=== PATIENT | male | born 1930 | race Two or more races ===

== ENCOUNTER 2016-05-06 15:13 | Inpatient (IN) | payer OTHER ==
[~2016-05-06] VITALS: Ht 167.6 cm; Wt 75.7 kg
[2016-05-06 17:49] LABS: Basophils # (auto) 0 uL; Basophils % (auto) 0.3 % (0.0-2.0); Eosinophils # (auto) 0.2 uL; Eosinophils % (auto) 1.6 % (0.0-7.0); Hematocrit 34.2 % (41.0-53.0); Hemoglobin 11.4 g/dL (13.5-17.5); Lymphocytes # (auto) 0.8 uL; Lymphocytes % (auto) 8.4 % (10.0-50.0); Mean Corpuscular Hgb Conc. 33.2 g/dL (32.0-36.0); Mean Corpuscular Volume 93.5 fL (80.0-100.0); Mean Platelet Volume 7.8 fL (7.4-10.4); Monocytes # (auto) 0.5 uL; Monocytes % (auto) 5.2 % (0.0-12.0); Neutrophils # (auto) 8.2 uL; Neutrophils % (auto) 84.5 % (37.0-80.0); Platelet Count (auto) 258 10^3/uL (140-450); Red Cell Distribution Width 13.9 % (11.6-16.0); White Blood Cell 9.7 10^3/uL (4.4-10.8)
[2016-05-06 18:02] LABS: Albumin 4.1 g/dL (3.4-5.0); Anion Gap 10 (5-15); Aspartate Aminotransferase 15 U/L (15-37); BUN/Creatinine Ratio 20.2; Blood Urea Nitrogen 52 mg/dL (7-18); Calcium 9.4 mg/dL (8.5-10.1); Carbon Dioxide 31 mmol/L (21-32); Chloride 97 mmol/L (98-107); GFR African American 31 mL/min; GFR Non-African American 25 mL/min; Glucose 101 mg/dL (74-106); Potassium 4.9 mmol/L (3.5-5.1); Sodium 138 mmol/L (136-145)
[2016-05-06 18:07] LABS: Alkaline Phosphatase 80 U/L (45-117); Bilirubin, Total 0.5 mg/dL (0.2-1.0); Total Protein 8.1 g/dL (6.4-8.2)
[2016-05-06 20:52] LABS: INR 1.01 (0.9-1.15); Partial Thromboplastin Time 28.2 sec (22.64-33.71); Prothrombin Time 10.9 sec (9.37-12.3)
[2016-05-06 20:54] LABS: B-Type Natriuretic Peptide 65.81 pg/mL (0-100)
[2016-05-06 21:03] LABS: Temperature: 23.1 C (20.0-25.0)
[2016-05-06 23:13] LABS: Urine Bilirubin Negative (Negative); Urine Blood Negative /uL (Negative); Urine Color Yellow (Yellow); Urine Glucose Normal (Normal); Urine Hyaline Cast MOD /lpf (0 - 2); Urine Ketone Negative (Negative); Urine Mucus FEW (None Seen); Urine Nitrite Negative (Negative); Urine RBC 1 /hpf (0 - 3); Urine Squamous Epithelial Cell FEW /hpf (<5); Urine Urobilinogen Normal (Negative)
[2016-05-07] MEDS ORDERED: cefTRIAXone 1GM/50ML D5W 50 ML IV ONE ×3 (00:30→06:15)
[2016-05-07] MEDS ORDERED: BACITRACIN-POLYMYXIN B TOPICAL OINT UD TOP ONE (01:04)
[2016-05-07] MEDS ORDERED: NEOMYCIN-BACITRACIN-POLYM UNITDOSE PKG TOP OINT TOP ONE (01:15)
[2016-05-07] MEDS ORDERED: LACTULOSE 20Gm/30ML SOLN PO PRN (06:15)
[2016-05-07] MEDS ORDERED: ACETAMINOPHEN 500 MG TAB PO PRN (06:15)
[2016-05-07] MEDS ORDERED: TEMAZEPAM 15 MG CAP PO PRN (06:15)
[2016-05-07] MEDS ORDERED: NITROGLYCERIN 0.4 MG SL TAB SL PRN (06:15)
[2016-05-07] MEDS ORDERED: MORPHINE SULF INJ 2 MG/ML SYRINGE 1ML IV PRN ×2 (06:15)
[2016-05-07] MEDS ORDERED: PROCHLORPERAZINE EDISYLATE 5 MG/ML 2ML VIAL IV PRN (06:15)
[2016-05-07] MEDS ORDERED: LORazepam 0.5 MG TAB PO PRN (06:15)
[2016-05-07] MEDS: SODIUM CHLORIDE 0.9% 1,000 ML IV SCH ×2 (06:23→18:13)
[2016-05-07] MEDS: HYDROcodone-ACET 5/325MG TAB PO PRN ×2 (06:50→19:50)
[2016-05-07 07:06] LABS: Cholesterol 143 mg/dL (0-200); HDL Cholesterol 27 mg/dL (40-59); LDL Cholesterol 85 mg/dL (<100); Triglycerides 208 mg/dL (<150)
[2016-05-07] MEDS ORDERED: ENOXAPARIN SOD 40 MG/0.4 ML SYRINGE SC SCH (10:00)
[2016-05-07] MEDS: ENOXAPARIN SOD 30 MG/0.3 ML SYRINGE SC SCH (11:12)
[2016-05-07] MEDS: ASPirin 81 mg TAB PO SCH (11:12)
[2016-05-07 14:00] VITALS: BP 147/68
[2016-05-07 14:08] LABS: Basophils # (auto) 0 uL; Basophils % (auto) 0.3 % (0.0-2.0); Eosinophils # (auto) 0.3 uL; Eosinophils % (auto) 3.6 % (0.0-7.0); Hematocrit 32.5 % (41.0-53.0); Hemoglobin 10.9 g/dL (13.5-17.5); Lymphocytes # (auto) 0.7 uL; Lymphocytes % (auto) 8.9 % (10.0-50.0); Mean Corpuscular Hemoglobin 31.1 pg (28.0-32.0); Mean Corpuscular Hgb Conc. 33.4 g/dL (32.0-36.0); Mean Corpuscular Volume 92.9 fL (80.0-100.0); Mean Platelet Volume 7.7 fL (7.4-10.4); Monocytes # (auto) 0.5 uL; Monocytes % (auto) 6.5 % (0.0-12.0); Neutrophils # (auto) 6.3 uL; Neutrophils % (auto) 80.7 % (37.0-80.0); Platelet Count (auto) 211 10^3/uL (140-450); Red Cell Distribution Width 13.8 % (11.6-16.0); White Blood Cell 7.8 10^3/uL (4.4-10.8)
[2016-05-07] MEDS ORDERED: LEVETIRACETAM 500 MG TAB PO ONE (14:15)
[2016-05-07 14:29] LABS: BUN/Creatinine Ratio 22.3; Calcium 8.8 mg/dL (8.5-10.1); Potassium 4.9 mmol/L (3.5-5.1)
[2016-05-07 16:05] VITALS: BP 118/73
[2016-05-07] MEDS ORDERED: TAMSULOSIN HYDROCHLORIDE 0.4 MG CAP PO SCH (18:00)
[2016-05-07 21:43] VITALS: BP 110/52
[2016-05-07] MEDS ORDERED: ATORVASTATIN 20 MG TAB PO SCH (22:00)
[2016-05-07] MEDS: LEVETIRACETAM 500 MG TAB PO SCH (22:50)
[2016-05-08] MEDS ORDERED: cefTRIAXone 1GM/50ML D5W 50 ML IV SCH (01:00)
[2016-05-08 05:00] VITALS: BP 115/60
[2016-05-08 05:29] LABS: Basophils # (auto) 0 uL; Basophils % (auto) 0.4 % (0.0-2.0); Eosinophils # (auto) 0.3 uL; Eosinophils % (auto) 4.2 % (0.0-7.0); Lymphocytes # (auto) 1.2 uL; Lymphocytes % (auto) 16.4 % (10.0-50.0); Mean Corpuscular Hemoglobin 31.1 pg (28.0-32.0); Mean Corpuscular Hgb Conc. 33.4 g/dL (32.0-36.0); Mean Corpuscular Volume 93.2 fL (80.0-100.0); Mean Platelet Volume 7.8 fL (7.4-10.4); Monocytes # (auto) 0.6 uL; Monocytes % (auto) 7.3 % (0.0-12.0); Neutrophils # (auto) 5.4 uL; Neutrophils % (auto) 71.7 % (37.0-80.0); Platelet Count (auto) 187 10^3/uL (140-450); Red Cell Distribution Width 13.7 % (11.6-16.0); White Blood Cell 7.6 10^3/uL (4.4-10.8)
[2016-05-08 06:17] LABS: Albumin 3.4 g/dL (3.4-5.0); Bilirubin, Total 0.3 mg/dL (0.2-1.0); Calcium 8.4 mg/dL (8.5-10.1); Potassium 4.4 mmol/L (3.5-5.1); Total Protein 6.9 g/dL (6.4-8.2)
[2016-05-08] MEDS: SODIUM CHLORIDE 0.9% 1,000 ML IV SCH (07:23)
[2016-05-08 09:00] VITALS: BP 134/63
[2016-05-08] MEDS: ASPirin 81 mg TAB PO SCH (10:46)
[2016-05-08] MEDS: LEVETIRACETAM 500 MG TAB PO SCH (10:47)
[2016-05-08] MEDS: ENOXAPARIN SOD 30 MG/0.3 ML SYRINGE SC SCH (10:47)
[2016-05-08 13:00] VITALS: BP 126/54
[2016-05-10 00:11] LABS: Prostate Specific Antigen 0.2 ng/mL (0.0-4.0)
[2016-05-10 01:09] LABS: PSA Free 0.05 ng/mL
== END 2016-05-08 17:33 | disposition home or self-care (01) | DRG 682 ==
LOC: ER 15:25 → TELE 15:26 → TELE-E-ADS 05-07 09:02 → TELE-CENTR 05-07 10:28
PROVIDERS: ADMIT Internal Medicine; ATTEND Internal Medicine
DX: N17.9 Acute kidney failure, unspecified (principal); G93.41 Metabolic encephalopathy; N39.0 Urinary tract infection, site not specified; R33.8 Other retention of urine; N40.1 Benign prostatic hyperplasia with lower urinary tract symptoms; N40.0 Benign prostatic hyperplasia without lower urinary tract symptoms; I12.9 Hypertensive chronic kidney disease with stage 1 through stage 4 chronic kidney disease, or unspecified chronic kidney disease; N18.9 Chronic kidney disease, unspecified; E86.0 Dehydration; Z82.49 Family history of ischemic heart disease and other diseases of the circulatory system; Z83.3 Family history of diabetes mellitus; Z87.891 Personal history of nicotine dependence
CPT/HCPCS: 36415; 70450; 71010; 76775; 80048; 80053; 80061; 81001; 82306; 82550; 82570; 82607; 82746; 83735; 83880; 83970; 84154; 84300; 84439; 84443; 84484; 85025; 85379; 85610; 85652; 85730; 87086; 93005; 93306; 93886; 95819; 96365; J0696